=== PATIENT | female | born 1995 | race Caucasian/White ===

== ENCOUNTER → 2018-12-31 | Outpatient (REF) | payer OTHER | LOC: M LAB REF 16:26 | PROVIDERS: ATTEND Obstetrics & Gynecology | DX: Z36.85 Encounter for antenatal screening for Streptococcus B (principal) ==

== ENCOUNTER 2019-01-12 13:00 | Outpatient (CLI) | payer OTHER ==
[~2019-01-12] VITALS: Ht 157.5 cm; Wt 105.5 kg
[2019-01-12 13:30] VITALS: BP 130/77
[2019-01-12 14:07] VITALS: BP 125/63
[2019-01-12 14:56] VITALS: BP 114/66
[2019-01-12] MEDS ORDERED: LEVO175T2 PO (15:00)
[2019-01-12 15:26] VITALS: BP 123/66
== END 2019-01-12 15:53 | disposition home or self-care (01) ==
LOC: M LDO 13:00
PROVIDERS: ATTEND Obstetrics & Gynecology
DX: O36.8130 Decreased fetal movements, third trimester, not applicable or unspecified (principal); Z3A.38 38 weeks gestation of pregnancy

== ENCOUNTER 2019-01-29 07:22 | Inpatient (IN) | payer OTHER ==
[~2019-01-29] VITALS: Ht 157.5 cm; Wt 106.0 kg
[2019-01-29] VITALS (8 sets, daily range): BP systolic 116–138; BP diastolic 57–81
[~2019-01-29 07:22] MED LIST: LEVO175T2 PO
[2019-01-29] MEDS ORDERED: LACTATED RINGER'S 1000 ML IV STA (08:05)
[2019-01-29] MEDS ORDERED: LR 1,000 ML IV SCH ×2 (08:05→11:30)
[2019-01-29] MEDS ORDERED: BICITRA 30ML SOLN UDC PO ONE (08:30)
[2019-01-29] MEDS ORDERED: ceFAZolin SOD 2 GM in IV 1 EA IV ONE (08:30)
[2019-01-29 08:36] LABS: HEMATOCRIT 33.9 % (36.0-47.0); HEMOGLOBIN 11.5 g/dl (12.0-15.5); MEAN CORPUSCULAR HEMOGLOBIN 30.8 pg (27.0-33.0); MEAN CORPUSCULAR HGB CONC 33.9 g/dl (32.0-36.5); MEAN CORPUSCULAR VOLUME 90.9 fl (80.0-96.0); PLATELET COUNT, AUTOMATED 238 10^3/uL (150-450); RED BLOOD COUNT 3.73 10^6/uL (4.00-5.40); WHITE BLOOD COUNT 9.9 10^3/uL (4.0-10.0)
[2019-01-29] MEDS: PRENATAL VITAMINS CHEWABLE TABLET PO SCH (09:00)
[2019-01-29] MEDS: DOCUSATE SODIUM 100 MG CAP PO SCH ×2 (09:00→21:15)
[2019-01-29] MEDS ORDERED: MORPHINE PRES-FREE INJ 10 MG/10 ML VIAL (J2274) As Ordered ONE (09:33)
[2019-01-29] MEDS ORDERED: ONDANSETRON 4MG/2ML VIAL (J2405) As Ordered ONE ×2 (09:33→12:16)
[2019-01-29] MEDS ORDERED: ONDANSETRON 4MG/2ML VIAL (J2405) IV PRN ×3 (10:11→11:30)
[2019-01-29] MEDS ORDERED: NALOXONE INJ 0.4 MG/1 ML VIAL (J2310) IV PRN ×2 (10:11)
[2019-01-29] MEDS ORDERED: diphenhydrAMINE INJ 50MG/ML VIAL (J1200) IV PRN (10:11)
[2019-01-29] MEDS ORDERED: OXYTOCIN DRIP 30 UNITS in IV 1 EA IV SCH (10:11)
[2019-01-29] MEDS ORDERED: NALBUPHINE HCL 10 MG/ML AMP (J2300) IV PRN (10:11)
[2019-01-29] MEDS ORDERED: METOCLOPRAMIDE INJ 10MG/2ML VIAL (J2765) IV PRN ×2 (10:11→11:30)
[2019-01-29] MEDS ORDERED: MEASLES,MUMPS,RUBELLA VACCINE INJ (MMR-II) (90707) SC SCH (10:15)
[2019-01-29] MEDS ORDERED: MOM 30ML SUSPENSION UDC PO PRN (10:15)
[2019-01-29] MEDS ORDERED: ACETAMINOPHEN 500 MG TAB PO PRN (10:15)
[2019-01-29] MEDS ORDERED: RHOGAM 300 MCG (1500 IU) INJ (J2790) IM SCH (10:15)
[2019-01-29] MEDS ORDERED: KETOROLAC 60 MG/2 ML VIAL (J1885) As Ordered ONE (10:32)
[2019-01-29] MEDS ORDERED: OXYTOCIN INJ 10 UNITS/ML VIAL (J2590) As Ordered ONE (10:33)
[2019-01-29 10:50] LABS: CORD GAS HCO3 A 24.2 MEQ/L; CORD GAS O2 SAT A 22.7 %; CORD GAS PCO2 A 57.1 mmHg; CORD GAS PH A 7.245 UNITS; CORD GAS PO2 A 12.9 mmHg; CORD GAS SBC A 19.4 MEQ/L
[2019-01-29 10:52] LABS: CORD GAS ABE V -2.4; CORD GAS HCO3 V 23.7 MEQ/L; CORD GAS O2 SAT V 38.6 %; CORD GAS PCO2 V 45.2 mmHg; CORD GAS PH V 7.337 UNITS; CORD GAS PO2 V 17.6 mmHg; CORD GAS TCO2 V 25.1 MEQ/L
--- NOTE | 2019-01-29 11:22 | RO ---
DATE OF PROCEDURE: 01/29/2019 Keya is a 23-year-old female who had a history of prior section at approximately 40 plus weeks gestation. She wanted originally to go for trial of labor after (TOLAC), however changed her mind and decided to proceed with elective repeat section. PREOPERATIVE DIAGNOSIS: Term with a history of prior section for elective repeat section. POSTOPERATIVE DIAGNOSIS: Term with a history of prior section for elective repeat section. PROCEDURE: 1. Repeat section. 2. Revision of old scar. SURGEON: Jalen Beth DO PRINCIPAL SOFTWARE ENGINEER: ANESTHESIA: Spinal. COMPLICATIONS: None. ESTIMATED BLOOD LOSS: 500 mL. FINDINGS: Live female infant in occiput transverse position. scores nine and nine. weight 8 pounds 1 ounce. PROCEDURE After obtaining informed consent. Patient was taken to the operating room where she was draped and prepped in usual fashion. An elliptical incision was made. Old scar removed. Incision carried down to the fasia and spread laterally. Peritoneal cavity identified and entered. A mobios skin retractor was placed. delivered in a atraumatic fashion. Placenta delivered manually intact. Three-vessel cord. The uterus was then cleared of all clot and debris. Uterine incision repaired using #0 Vicryl sutures in two separate segments. All superficial bleeders coagulated. Pelvis copiously irrigated with normal saline and suctioned out. Attention turned to the peritoneum which was closed in a running fashion using #2-0 Vicryl. Fascia closed in two separate segments of #0 Vicryl sutures. All superficial bleeders coagulated and the skin was reapproximated in a subcuticular fashion using #3-0 Vicryl on a Dave. Steri-Strips placed. The patient tolerated procedure well. She was then transferred to recovery room in stable condition. MANUEL
[2019-01-29] MEDS ORDERED: PERCOCET 5MG/325MG TAB PO PRN (11:30)
[2019-01-29] MEDS ORDERED: KETOROLAC 30 MG/ML VIAL (J1885) IV PRN (11:30)
[2019-01-29] MEDS ORDERED: fentaNYL 100 MCG/2 ML INJECTION (J3010) IV PRN ×2 (11:30→12:45)
[2019-01-29] MEDS ORDERED: OXYTOCIN 30 UNITS IN 0.9% NaCl 500ML IV BAG (J2590) As Ordered ONE (11:38)
[2019-01-29] MEDS ORDERED: fentaNYL 100 MCG/2 ML INJECTION (J3010) As Ordered ONE (12:33)
[2019-01-29] MEDS: KETOROLAC 30 MG/ML VIAL (J1885) IV SCH ×2 (17:31→23:28)
[2019-01-30 02:20] VITALS: BP 116/73
[2019-01-30] MEDS: KETOROLAC 30 MG/ML VIAL (J1885) IV SCH (05:37)
[2019-01-30 06:00] VITALS: BP 113/55
[2019-01-30 08:08] LABS: HEMATOCRIT 28.7 % (36.0-47.0); MEAN CORPUSCULAR HEMOGLOBIN 29.9 pg (27.0-33.0); MEAN CORPUSCULAR HGB CONC 32.1 g/dl (32.0-36.5); MEAN CORPUSCULAR VOLUME 93.2 fl (80.0-96.0); PLATELET COUNT, AUTOMATED 215 10^3/uL (150-450); RED BLOOD COUNT 3.08 10^6/uL (4.00-5.40); WHITE BLOOD COUNT 9.9 10^3/uL (4.0-10.0)
[2019-01-30 08:24] LABS: HEMOGLOBIN 9.2 g/dl (12.0-15.5)
[2019-01-30] MEDS ORDERED: LEVOTHYROXINE 75MCG TABLET (0.075MG) PO SCH (09:00)
[2019-01-30] MEDS: PRENATAL VITAMINS CHEWABLE TABLET PO SCH (09:00)
[2019-01-30] MEDS ORDERED: LEVOTHYROXINE 100MCG TABLET (0.1MG) PO SCH (09:00)
[2019-01-30] MEDS: DOCUSATE SODIUM 100 MG CAP PO SCH ×2 (09:59→20:33)
[2019-01-30] MEDS: LEVOTHYROXINE 100MCG TABLET (0.1MG) PO SCH (09:59)
[2019-01-30] MEDS: LEVOTHYROXINE 75MCG TABLET (0.075MG) PO SCH (10:00)
[2019-01-30 10:30] VITALS: BP 122/64
[2019-01-30] MEDS: IBUPROFEN 800 MG TAB PO SCH ×2 (13:31→20:32)
[2019-01-30 14:00] VITALS: BP 126/74
[2019-01-30 18:00] VITALS: BP 128/58
[2019-01-30] MEDS: PERCOCET 5MG/325MG TAB PO PRN (18:01)
[2019-01-30 22:22] VITALS: BP 104/56
[2019-01-31 02:00] VITALS: BP 129/68
[2019-01-31] MEDS: LEVOTHYROXINE 100MCG TABLET (0.1MG) PO SCH (05:25)
[2019-01-31] MEDS: LEVOTHYROXINE 75MCG TABLET (0.075MG) PO SCH (05:25)
[2019-01-31] MEDS: IBUPROFEN 800 MG TAB PO SCH (05:26)
[2019-01-31 06:00] VITALS: BP 118/57
[2019-01-31] MEDS: PRENATAL VITAMINS CHEWABLE TABLET PO SCH (09:00)
[2019-01-31] MEDS: PERCOCET 5MG/325MG TAB PO PRN (09:01)
[2019-01-31] MEDS: DOCUSATE SODIUM 100 MG CAP PO SCH (09:01)
== END 2019-01-31 11:25 | disposition home or self-care (01) | DRG 540 ==
LOC: M LDI 07:22 → M OBS 13:10
PROVIDERS: ADMIT Obstetrics & Gynecology; ATTEND Obstetrics & Gynecology
PROC: 0HB7XZZ Excision of Abdomen Skin, External Approach (ICD-10-PCS; 2019-01-29)
PROC: 10D00Z1 Extraction of Products of Conception, Low, Open Approach (ICD-10-PCS; principal; 2019-01-29 10:00)
DX: O34.211 Maternal care for low transverse scar from previous cesarean delivery (principal); Z37.0 Single live birth; Z3A.40 40 weeks gestation of pregnancy

== ENCOUNTER 2019-03-11 15:36 | Emergency (ER) | payer OTHER ==
[~2019-03-11] VITALS: Ht 157.5 cm; Wt 92.7 kg
[2019-03-11] MEDS ORDERED: LEVO125T4 (15:43)
[2019-03-11 17:27] VITALS: BP 129/61
== END 2019-03-11 17:29 | disposition home or self-care (01) ==
LOC: M ED 15:36
DX: F43.20 Adjustment disorder, unspecified (principal); Z91.040 Latex allergy status

== ENCOUNTER → 2021-10-31 | Outpatient (REF) | payer OTHER ==
[~2021-10-31] MED LIST changes: +LEVO125T4
== END ==
LOC: M PLALAB 14:33
PROVIDERS: ATTEND Obstetrics & Gynecology
DX: Z53.9 Procedure and treatment not carried out, unspecified reason (principal)

== ENCOUNTER → 2021-12-06 | Outpatient (CLI) | payer OTHER ==
[~2021-12-06] MED LIST changes: +ACET-683 PO; +IBUP-1022 PO; +LEVO125T4 PO
== END ==
LOC: M WHC 13:53
PROVIDERS: ATTEND Obstetrics & Gynecology
DX: Z53.9 Procedure and treatment not carried out, unspecified reason (principal); O99.282 Endocrine, nutritional and metabolic diseases complicating pregnancy, second trimester

== ENCOUNTER → 2021-12-06 | Outpatient (CLI) | payer OTHER | LOC: M WHC 14:13 | PROVIDERS: ATTEND Obstetrics & Gynecology | DX: O99.282 Endocrine, nutritional and metabolic diseases complicating pregnancy, second trimester (principal); O02.1 Missed abortion; Z3A.14 14 weeks gestation of pregnancy ==

== ENCOUNTER 2021-12-07 15:36 | Inpatient (IN) | payer OTHER ==
[~2021-12-07] VITALS: Ht 157.5 cm; Wt 102.4 kg
[~2021-12-07 15:36] MED LIST changes: -ACET-683 PO; -IBUP-1022 PO; -LEVO125T4 PO
[2021-12-07 16:01] VITALS: BP 119/67
[2021-12-07] MEDS ORDERED: HOME MED LIST COMPLETE! XX SCH (16:05)
[2021-12-07] MEDS ORDERED: METHYLERGONOVINE MALEATE 0.2 MG/ML VIAL (J2210) IM PRN (16:45)
[2021-12-07] MEDS ORDERED: RHOGAM 300 MCG (1500 IU) INJ (J2790) IM SCH (16:45)
[2021-12-07] MEDS ORDERED: LIDOCAINE 1% MDV 20ML VIAL INFIL PRN (16:45)
[2021-12-07] MEDS ORDERED: TRANEXAMIC ACID INJection 1,000 MG in NS 100 ML IV PRN (16:45)
[2021-12-07] MEDS ORDERED: OXYTOCIN DRIP 30 UNITS in IV 1 EA IV PRN ×4 (16:45)
[2021-12-07] MEDS ORDERED: CARBOPROST TROMETHAMINE 250 MCG/ML AMP IM PRN (16:45)
[2021-12-07] MEDS ORDERED: OXYTOCIN INJ 10 UNITS/ML VIAL (J2590) IM PRN (16:45)
[2021-12-07] MEDS: miSOPROStol 50MCG 1/2 TABLET PO SCH ×2 (17:19→21:22)
[2021-12-07] MEDS: ACETAMINOPHEN 500 MG TAB PO PRN (17:19)
[2021-12-07 17:20] VITALS: BP 139/64
[2021-12-07 17:52] LABS: BASO % 0.3 % (0.0-1.0); EOS % 0.4 % (0.0-3.0); HEMOGLOBIN 11.8 g/dl (12.0-15.5); LYMPH # 2.2 10^3/uL (1.5-5.0); LYMPH % 22.7 % (24.0-44.0); MEAN CORPUSCULAR HEMOGLOBIN 28.7 pg (27.0-33.0); MEAN CORPUSCULAR HGB CONC 32.8 g/dl (32.0-36.5); MEAN CORPUSCULAR VOLUME 87.6 fl (80.0-96.0); MONO # 0.5 10^3/uL (0.0-0.8); MONO % 5.4 % (2.0-8.0); NEUTROPHILS # 6.9 10^3/uL (1.5-8.5); NEUTROPHILS % 70.9 % (36.0-66.0); PLATELET COUNT, AUTOMATED 295 10^3/uL (150-450); RED BLOOD COUNT 4.11 10^6/uL (4.00-5.40); WHITE BLOOD COUNT 9.7 10^3/uL (4.0-10.0)
[2021-12-07 18:28] VITALS: BP 135/72
[2021-12-07 19:33] VITALS: BP 133/58
[2021-12-07 21:24] VITALS: BP 113/69
[2021-12-08] VITALS (16 sets, daily range): BP systolic 77–143; BP diastolic 47–90
[2021-12-08] MEDS: miSOPROStol 50MCG 1/2 TABLET PO SCH ×3 (01:00→09:00)
[2021-12-08] MEDS ORDERED: miSOPROStol 100MCG TABLET PO ONE ×2 (02:00→05:45)
[2021-12-08] MEDS: LEVOTHYROXINE 150MCG TABLET (0.15MG) PO SCH (05:51)
[2021-12-08] MEDS ORDERED: ONDANSETRON 4MG ORAL DISINTEGRATING TAB PO ONE (06:45)
[2021-12-08] MEDS ORDERED: SLF 3 ML SYR IV PRN (08:25)
[2021-12-08] MEDS: SLF 3 ML SYR IV SCH ×2 (08:32→22:19)
[2021-12-08] MEDS ORDERED: LEVO125T4 PO (08:43)
[2021-12-08] MEDS ORDERED: miSOPROStol 50MCG 1/2 TABLET PV ONE ×2 (13:00→19:45)
[2021-12-08] MEDS: ACETAMINOPHEN 500 MG TAB PO PRN ×2 (13:29→22:17)
[2021-12-09 00:29] VITALS: BP 123/73
[2021-12-09] MEDS ORDERED: miSOPROStol 50MCG 1/2 TABLET PO ONE (01:45)
[2021-12-09] MEDS ORDERED: PROMETHAZINE 25MG/ML 1ML VIAL IV ONE (01:55)
[2021-12-09] MEDS ORDERED: BUTORPHANOL 2 MG/ML INJ (J0595) IV ONE (01:55)
[2021-12-09 02:08] VITALS: BP 142/66
[2021-12-09] MEDS ORDERED: MORPHINE 10 MG/ML 1ML VIAL SC ONE (04:00)
[2021-12-09 04:26] VITALS: BP 108/60
[2021-12-09 04:42] VITALS: BP 110/56
[2021-12-09] MEDS ORDERED: MORPHINE 10 MG/ML 1ML VIAL IV ONE (05:00)
[2021-12-09 05:13] VITALS: BP 117/73
[2021-12-09] MEDS: LEVOTHYROXINE 150MCG TABLET (0.15MG) PO SCH (05:30)
[2021-12-09] MEDS: SLF 3 ML SYR IV SCH (06:00)
[2021-12-09] MEDS ORDERED: KETOROLAC 30 MG/ML 1ML VIAL IV ONE (08:50)
[2021-12-09] MEDS ORDERED: IBUP-1022 PO (13:49)
[2021-12-09] MEDS ORDERED: ACET-683 PO (13:49)
[2021-12-12 07:32] LABS: DRVV SCREEN 39.4 SEC
[2021-12-12 07:43] LABS: PTT LUPUS TYPE ANTICOAG SCREEN 1.1 (0-1.2)
[2021-12-13 15:11] LABS: ANTI PARVO VIRUS LEVEL IGG 8.7 index (0.0-0.8); ANTI PARVO VIRUS LEVEL IgM 0.2 index (0.0-0.8); BETA-2 GLYCOPROTEIN I ABY IGA <9 (0-25); BETA-2 GLYCOPROTEIN I ABY IGG <9 (0-20); BETA-2 GLYCOPROTEIN I ABY IGM <9 (0-32); CARDIOLIPIN IGA ANTIBODY <9 APL U/mL (0-11); CARDIOLIPIN IGG ANTIBODY <9 GPL U/mL (0-14); CARDIOLIPIN IGM ANTIBODY <9 MPL U/mL (0-12)
== END 2021-12-09 14:20 | disposition home or self-care (01) | DRG 779 ==
LOC: M LDI 15:36
PROVIDERS: ADMIT Advanced Practice Midwife; ATTEND Obstetrics & Gynecology
PROC: 3E0P7GC Introduction of Other Therapeutic Substance into Female Reproductive, Via Natural or Artificial Opening (ICD-10-PCS; principal; 2021-12-07)
DX: O02.1 Missed abortion (principal); Z3A.16 16 weeks gestation of pregnancy

== ENCOUNTER → 2022-06-05 | Outpatient (CLI) | payer OTHER ==
[~2022-06-05] MED LIST changes: +ACET-683 PO; +IBUP-1022 PO; +LEVO125T4 PO
[2022-06-05 15:51] LABS: HEMATOCRIT 38.2 % (36.0-47.0); HEMOGLOBIN 12.4 g/dl (12.0-15.5); MEAN CORPUSCULAR HEMOGLOBIN 28.4 pg (27.0-33.0); MEAN CORPUSCULAR HGB CONC 32.5 g/dl (32.0-36.5); MEAN CORPUSCULAR VOLUME 87.4 fl (80.0-96.0); PLATELET COUNT, AUTOMATED 329 10^3/uL (150-450); RED BLOOD COUNT 4.37 10^6/uL (4.00-5.40); WHITE BLOOD COUNT 8.6 10^3/uL (4.0-10.0)
[2022-06-05 16:55] LABS: HIV 1&2 SCREEN CENTAUR NEGATIVE (NEGATIVE)
[2022-06-05 18:23] LABS: GC DNA AMPLIFICATION NEGATIVE (NEGATIVE)
== END ==
LOC: M PLALAB 13:39
PROVIDERS: ATTEND Obstetrics & Gynecology
DX: O34.219 Maternal care for unspecified type scar from previous cesarean delivery (principal); Z3A.00 Weeks of gestation of pregnancy not specified

== ENCOUNTER → 2022-08-14 | Outpatient (CLI) | payer OTHER | LOC: M WHC 14:28 | PROVIDERS: ATTEND Specialist | DX: Z34.82 Encounter for supervision of other normal pregnancy, second trimester (principal); Z3A.21 21 weeks gestation of pregnancy ==

== ENCOUNTER → 2022-11-20 | Outpatient (REF) | payer OTHER | LOC: M PLALAB 10:50 | PROVIDERS: ATTEND Obstetrics & Gynecology | DX: Z3A.36 36 weeks gestation of pregnancy (principal) ==

== ENCOUNTER 2022-12-02 22:48 | Outpatient (CLI) | payer OTHER ==
[~2022-12-02] VITALS: Ht 157.5 cm; Wt 107.8 kg
[~2022-12-02 22:48] MED LIST changes: +SYNT175T2 PO
[2022-12-02 23:06] VITALS: BP 124/74
[2022-12-02] MEDS ORDERED: HOME MED LIST COMPLETE! XX SCH (23:15)
[2022-12-02] MEDS ORDERED: ACETAMINOPHEN 500 MG TAB PO ONE (23:55)
[2022-12-03 01:02] LABS: APPEARANCE, URINE CLEAR (CLEAR); BACTERIA, URINE AUTO NEGATIVE (NEGATIVE); BILIRUBIN, URINE AUTO NEGATIVE (NEGATIVE); BLOOD, URINE BLOOD NEGATIVE (NEGATIVE); COLOR, URINE STRAW (YELLOW); GLUCOSE, URINE (UA) AUTO NEGATIVE (NEGATIVE); KETONE, URINE AUTO TRACE mg/dL (NEGATIVE); LEUKOCYTE ESTERASE, URINE AUTO NEGATIVE (NEGATIVE); MUCUS, URINE SMALL (NEGATIVE); NITRITE, URINE AUTO NEGATIVE (NEGATIVE); PROTEIN, URINE AUTO NEGATIVE (NEGATIVE); RBC, URINE AUTO 0 /HPF (0-3); SPECIFIC GRAVITY URINE AUTO 1.006 (1.002-1.035); SQUAMOUS EPITHELIAL CELL UR AU 0 /HPF (0-6); UROBILINOGEN, URINE AUTO 0.2 mg/dL (0.0-2.0); WBC, URINE AUTO 0 /HPF (0-3)
== END 2022-12-03 01:26 | disposition home or self-care (01) ==
LOC: M LDO 22:48
PROVIDERS: ATTEND Obstetrics & Gynecology
DX: O47.1 False labor at or after 37 completed weeks of gestation (principal); O34.219 Maternal care for unspecified type scar from previous cesarean delivery; O99.283 Endocrine, nutritional and metabolic diseases complicating pregnancy, third trimester; E03.9 Hypothyroidism, unspecified; Z91.018 Allergy to other foods; Z91.040 Latex allergy status; Z91.048 Other nonmedicinal substance allergy status; Z3A.37 37 weeks gestation of pregnancy
CPT/HCPCS: 59025; 81001; G0463

== ENCOUNTER 2022-12-13 05:08 | Inpatient (IN) | payer OTHER ==
[2022-12-13] VITALS (8 sets, daily range): BP systolic 111–127; BP diastolic 54–72; TEMP 97.8; O2SAT 95–99
[~2022-12-13] VITALS: Ht 157.5 cm; Wt 108.2 kg
[2022-12-13] MEDS ORDERED: LACTATED RINGER'S 1000 ML IV STA (05:21)
[2022-12-13] MEDS ORDERED: LR 1,000 ML IV SCH (05:25)
[2022-12-13] MEDS ORDERED: ceFAZolin SOD 2 GM in IV 1 EA IV ONE (05:25)
[2022-12-13] MEDS ORDERED: LIDOCAINE 1% SDV 5ML VIAL SC PRN (05:25)
[2022-12-13] MEDS ORDERED: BICITRA 30ML SOLN UDC PO ONE (05:25)
[2022-12-13] MEDS ORDERED: HOME MED LIST COMPLETE! XX SCH (05:30)
[2022-12-13 06:15] LABS: HEMATOCRIT 30.9 % (36.0-47.0); HEMOGLOBIN 9.6 g/dl (12.0-15.5); MEAN CORPUSCULAR HEMOGLOBIN 26.2 pg (27.0-33.0); MEAN CORPUSCULAR HGB CONC 31.1 g/dl (32.0-36.5); MEAN CORPUSCULAR VOLUME 84.2 fl (80.0-96.0); PLATELET COUNT, AUTOMATED 274 10^3/uL (150-450); RED BLOOD COUNT 3.67 10^6/uL (4.00-5.40); WHITE BLOOD COUNT 9.7 10^3/uL (4.0-10.0)
[2022-12-13] MEDS ORDERED: ACETAMINOPHEN 1000MG 100ML IV BAG As Ordered ONE (08:02)
[2022-12-13] MEDS ORDERED: ePHEDrine SULFATE 25 MG/5 ML(5MG/ML) SYRINGE As Ordered ONE ×2 (08:02→08:19)
[2022-12-13] MEDS ORDERED: PHENYLephrine 500MCG 5ML (100MCG/ML) SYRINGE As Ordered ONE (08:02)
[2022-12-13] MEDS ORDERED: GLYCOPYRROLATE INJ 0.2 MG/ML 2 ML VIAL As Ordered ONE (08:02)
[2022-12-13] MEDS ORDERED: ONDANSETRON 4MG 2ML VIAL As Ordered ONE (08:02)
[2022-12-13] MEDS ORDERED: KETOROLAC 60MG 2ML VIAL As Ordered ONE (08:02)
[2022-12-13] MEDS ORDERED: MORPHINE PRES-FREE INJ 10 MG/10 ML VIAL As Ordered ONE (08:02)
[2022-12-13] MEDS ORDERED: ceFAZolin 1GM VIAL As Ordered ONE (08:07)
[2022-12-13] MEDS ORDERED: ceFAZolin SOD 1 GM in D5W MINI-BAG PLUS 50 ML IV ONE (09:00)
[2022-12-13] MEDS ORDERED: SIMETHICONE 80MG CHEW TAB PO PRN (09:35)
[2022-12-13] MEDS ORDERED: RHOGAM 300MCG (1500IU) INJ IM SCH (09:35)
[2022-12-13] MEDS ORDERED: OXYTOCIN DRIP 30 UNITS in IV 1 EA IV SCH (09:35)
[2022-12-13] MEDS ORDERED: MOM 30ML SUSPENSION UDC PO PRN (09:35)
[2022-12-13] MEDS ORDERED: PERCOCET 5MG/325MG TAB PO PRN (09:35)
[2022-12-13] MEDS ORDERED: OXYTOCIN 30UNITS IN 0.9% NaCl 500ML IV BAG As Ordered ONE (09:40)
[2022-12-13] MEDS ORDERED: oxyCODONE 5MG TAB PO PRN (09:45)
[2022-12-13] MEDS ORDERED: diphenhydrAMINE 50MG/ML VIAL IV PRN (09:45)
[2022-12-13] MEDS ORDERED: **NOTE PATIENT COMMENT** MISC XX SCH (09:45)
[2022-12-13] MEDS ORDERED: METOCLOPRAMIDE INJ 10MG/2ML VIAL IV PRN (09:45)
[2022-12-13] MEDS ORDERED: NALOXONE INJ 0.4MG/1ML VIAL IV PRN ×2 (09:45)
[2022-12-13] MEDS ORDERED: ONDANSETRON 4MG 2ML VIAL IV PRN ×2 (09:45)
[2022-12-13] MEDS ORDERED: fentaNYL 100 MCG/2 ML INJECTION IV PRN (09:45)
[2022-12-13] MEDS: LR 1,000 ML IV SCH ×3 (09:47→22:44)
[2022-12-13] MEDS ORDERED: LR 1,000 ML IV ONE ×2 (11:55→18:05)
[2022-12-13] MEDS: SLF 3 ML SYR IV SCH ×2 (12:02→17:52)
[2022-12-13] MEDS: KETOROLAC 30 MG/ML 1ML VIAL IV SCH ×2 (16:02→21:11)
[2022-12-13] MEDS: DOCUSATE SODIUM 100MG CAPSULE PO SCH (21:11)
[2022-12-14] MEDS: SLF 3 ML SYR IV SCH (01:45)
[2022-12-14 02:00] VITALS: BP 102/53; O2SAT 99
[2022-12-14] MEDS: KETOROLAC 30 MG/ML 1ML VIAL IV SCH (03:10)
[2022-12-14] MEDS: LEVOTHYROXINE 150MCG TABLET (0.15MG) PO SCH (05:43)
[2022-12-14] MEDS: LEVOTHYROXINE 25MCG TABLET (0.025MG) PO SCH (05:43)
[2022-12-14 06:00] VITALS: BP 106/62; O2SAT 98
[2022-12-14 06:51] LABS: HEMATOCRIT 24.3 % (36.0-47.0); MEAN CORPUSCULAR HEMOGLOBIN 26.6 pg (27.0-33.0); MEAN CORPUSCULAR HGB CONC 30.9 g/dl (32.0-36.5); MEAN CORPUSCULAR VOLUME 86.2 fl (80.0-96.0); PLATELET COUNT, AUTOMATED 211 10^3/uL (150-450); RED BLOOD COUNT 2.82 10^6/uL (4.00-5.40); WHITE BLOOD COUNT 8.7 10^3/uL (4.0-10.0)
[2022-12-14 06:55] LABS: HEMOGLOBIN 7.5 g/dl (12.0-15.5)
[2022-12-14] MEDS: PRENATAL VITAMINS CHEWABLE TABLET PO SCH (09:00)
[2022-12-14] MEDS: DOCUSATE SODIUM 100MG CAPSULE PO SCH ×2 (09:01→20:08)
[2022-12-14] MEDS: LR 1,000 ML IV SCH ×3 (09:35→20:03)
[2022-12-14 10:00] VITALS: BP 121/72; O2SAT 98
[2022-12-14] MEDS: IBUPROFEN 800 MG TAB PO SCH ×2 (12:58→19:00)
[2022-12-14 14:00] VITALS: BP 106/57; O2SAT 98
[2022-12-14] MEDS: PERCOCET 5MG/325MG TAB PO PRN (17:48)
[2022-12-14 18:00] VITALS: BP 127/74; O2SAT 98
[2022-12-14 21:57] VITALS: BP 128/62; O2SAT 98
[2022-12-15 02:00] VITALS: BP 116/59; O2SAT 99
[2022-12-15] MEDS: LEVOTHYROXINE 25MCG TABLET (0.025MG) PO SCH (05:17)
[2022-12-15] MEDS: IBUPROFEN 800 MG TAB PO SCH ×2 (05:17→12:14)
[2022-12-15] MEDS: LEVOTHYROXINE 150MCG TABLET (0.15MG) PO SCH (05:17)
[2022-12-15 06:00] VITALS: BP 112/63; O2SAT 100
[2022-12-15] MEDS ORDERED: MEASLES,MUMPS,RUBELLA VACCINE INJ (MMR-II) SC.IMMUN ONE (09:00)
[2022-12-15] MEDS: PRENATAL VITAMINS CHEWABLE TABLET PO SCH (09:00)
[2022-12-15] MEDS: DOCUSATE SODIUM 100MG CAPSULE PO SCH (09:21)
[2022-12-15] MEDS: LR 1,000 ML IV SCH (09:35)
[2022-12-15] MEDS: PERCOCET 5MG/325MG TAB PO PRN (09:36)
[2022-12-15] MEDS ORDERED: PERCOCET PO (10:06)
[2022-12-15] MEDS ORDERED: IBUP80TA PO (10:06)
== END 2022-12-15 19:50 | disposition home or self-care (01) | DRG 540 ==
LOC: M LDI 05:08 → M OBS 10:18
PROVIDERS: ADMIT Obstetrics & Gynecology; ATTEND Obstetrics & Gynecology
PROC: 0UB70ZZ Excision of Bilateral Fallopian Tubes, Open Approach (ICD-10-PCS; 2022-12-13)
PROC: 10D00Z1 Extraction of Products of Conception, Low, Open Approach (ICD-10-PCS; principal; 2022-12-13 07:30)
DX: O34.211 Maternal care for low transverse scar from previous cesarean delivery (principal); Z37.0 Single live birth; Z3A.39 39 weeks gestation of pregnancy; Z30.2 Encounter for sterilization

== ENCOUNTER → 2023-11-30 | Outpatient (CLI) | payer OTHER ==
[~2023-11-30] MED LIST changes: +IBUP80TA PO; +PERCOCET PO
== END ==
LOC: M WHC 13:39
PROVIDERS: ATTEND Obstetrics & Gynecology
DX: N93.9 Abnormal uterine and vaginal bleeding, unspecified (principal); N85.2 Hypertrophy of uterus

== ENCOUNTER → 2024-03-10 | Outpatient (CLI) | payer OTHER ==
[~2024-03-10] MED LIST changes: +ISOVUE-370 76% 100ML VIAL ONE
== END ==
LOC: M PLAIMG 09:22
PROVIDERS: ATTEND Surgery
DX: K43.2 Incisional hernia without obstruction or gangrene (principal); R91.1 Solitary pulmonary nodule; K76.0 Fatty (change of) liver, not elsewhere classified; N28.1 Cyst of kidney, acquired; K43.9 Ventral hernia without obstruction or gangrene; N83.292 Other ovarian cyst, left side
CPT/HCPCS: 74177; Q9967

== ENCOUNTER 2024-06-04 11:12 | Day surgery (SDC) | payer OTHER ==
[~2024-06-04] VITALS: Ht 154.9 cm; Wt 107.0 kg
[~2024-06-04 11:12] MED LIST changes: +CELE0.09 PO; +GLYCOPYRROLATE INJ 0.2 MG/ML 2 ML VIAL As Ordered ONE; +HAIR1CHW PO; -ISOVUE-370 76% 100ML VIAL ONE; +KETOROLAC 60MG 2ML VIAL As Ordered ONE; +LEVO137T2 PO; +LEXA1TAB2 PO; +LIDOCAINE 2% 100MG/5ML SDV (FOR ANES.) As Ordered ONE; +METOCLOPRAMIDE INJ 10MG/2ML VIAL As Ordered ONE; +MIDAZOLAM INJ 2MG/2ML VIAL As Ordered ONE; +ONDANSETRON 4MG 2ML VIAL As Ordered ONE; +ROCURONIUM BROMIDE 50MG/5ML VIAL As Ordered ONE; +SERT50TA29 PO; +SUGAMMADEX SODIUM 500 MG/5 ML VIAL (BRIDION) As Ordered ONE; +VENL75CA47 PO; +fentaNYL 100 MCG/2 ML INJECTION As Ordered ONE; +propofoL 200 MG/20 ML VIAL As Ordered ONE
[2024-06-04 11:52] LABS: HEMATOCRIT 34.5 % (36.0-47.0); HEMOGLOBIN 10.9 g/dl (12.0-15.5); MEAN CORPUSCULAR HEMOGLOBIN 24.9 pg (27.0-33.0); MEAN CORPUSCULAR HGB CONC 31.6 g/dl (32.0-36.5); MEAN CORPUSCULAR VOLUME 78.9 fl (80.0-96.0); PLATELET COUNT, AUTOMATED 380 10^3/uL (150-450); RED BLOOD COUNT 4.37 10^6/uL (4.00-5.40); WHITE BLOOD COUNT 5.9 10^3/uL (4.0-10.0)
[2024-06-04 12:20] LABS: HCG, SERUM QUALITATIVE NEGATIVE (NEGATIVE)
[2024-06-04] MEDS: ceFAZolin SOD 3 GM in DEXTROSE 5% (D5W) MINI-BAG PLU 1... IV ONE (12:23)
[2024-06-04] MEDS: METHYLENE BLUE 0.5% (5MG/ML) 10 ML AMP (PROVAYBLUE) As Ordered ONE (14:00)
[2024-06-04] MEDS: SCOPOLAMINE 1MG TRANSDERMAL PATCH As Ordered ONE (14:08)
[2024-06-04] MEDS: LR 1,000 ML IV SCH ×2 (15:00→15:15)
[2024-06-04] MEDS ORDERED: PERCOCET 5MG/325MG TAB PO PRN ×2 (15:15)
[2024-06-04] MEDS ORDERED: ONDANSETRON 4MG TAB PO PRN (15:15)
[2024-06-04] MEDS ORDERED: MORPHINE 4 MG/ML 1ML VIAL IV PRN (15:15)
[2024-06-04] MEDS ORDERED: ONDANSETRON 4MG 2ML VIAL IV PRN (15:15)
[2024-06-04] MEDS ORDERED: PERCOCET PO (15:24)
[2024-06-04] MEDS ORDERED: COLA100C5 PO (15:24)
[2024-06-04] MEDS ORDERED: IBUP80TA PO (15:24)
[2024-06-04] MEDS: fentaNYL 100 MCG/2 ML INJECTION IV PRN (15:29)
[2024-06-04] MEDS: ONDANSETRON 4MG 2ML VIAL IV PRN (15:29)
[2024-06-04] MEDS ORDERED: METOCLOPRAMIDE INJ 10MG/2ML VIAL IV PRN (15:40)
[2024-06-04] MEDS: oxyCODONE 5MG TAB PO PRN (15:54)
[2024-06-04] MEDS: HYDROMORPHONE HCL 0.5 MG/ 0.5 ML SYRINGE IV PRN (15:55)
[2024-06-04 17:15] VITALS: BP 121/70; TEMP 97.8; O2SAT 96
[2024-06-04 17:45] VITALS: BP 109/53; TEMP 98; O2SAT 96
[2024-06-04 18:15] VITALS: BP 112/60; TEMP 98.5; O2SAT 96
[2024-06-04] MEDS: KETOROLAC 30 MG/ML 1ML VIAL IV SCH (19:00)
[2024-06-04 19:15] VITALS: BP 106/53; TEMP 97.7; O2SAT 98
[2024-06-04] MEDS ORDERED: DOCUSATE SODIUM 100MG CAPSULE PO SCH (21:00)
[2024-06-05] MEDS ORDERED: IBUPROFEN 800 MG TAB PO SCH (15:00)
== END 2024-06-04 20:56 | disposition home or self-care (01) ==
LOC: M SDC 11:12 → UNDOADMOB 11:13 → M OBS 11:13 → M SDC 20:56 → UNDODISOB 20:56
PROVIDERS: ATTEND Obstetrics & Gynecology
DX: N93.9 Abnormal uterine and vaginal bleeding, unspecified (principal); N73.6 Female pelvic peritoneal adhesions (postinfective); R10.2 Pelvic and perineal pain; E03.9 Hypothyroidism, unspecified; F41.9 Anxiety disorder, unspecified; F32.A Depression, unspecified; F90.9 Attention-deficit hyperactivity disorder, unspecified type; G43.909 Migraine, unspecified, not intractable, without status migrainosus; Z79.899 Other long term (current) drug therapy; Z91.018 Allergy to other foods; Z91.040 Latex allergy status
CPT/HCPCS: 36415; 58571; 84703; 85027; 86850; 86900; 86901; 88307; J0665; J0690; J1100; J1171; J1596; J1885; J2250; J2405; J2765; J3010; Q9968; S2900

== ENCOUNTER → 2025-01-20 | Outpatient (REF) | payer OTHER ==
[~2025-01-20] MED LIST changes: +COLA100C5 PO; -GLYCOPYRROLATE INJ 0.2 MG/ML 2 ML VIAL As Ordered ONE; -IBUP-1022 PO; +IBUP600T42 PO; -KETOROLAC 60MG 2ML VIAL As Ordered ONE; -LIDOCAINE 2% 100MG/5ML SDV (FOR ANES.) As Ordered ONE; -METOCLOPRAMIDE INJ 10MG/2ML VIAL As Ordered ONE; -MIDAZOLAM INJ 2MG/2ML VIAL As Ordered ONE; -ONDANSETRON 4MG 2ML VIAL As Ordered ONE; -ROCURONIUM BROMIDE 50MG/5ML VIAL As Ordered ONE; -SUGAMMADEX SODIUM 500 MG/5 ML VIAL (BRIDION) As Ordered ONE; -fentaNYL 100 MCG/2 ML INJECTION As Ordered ONE; -propofoL 200 MG/20 ML VIAL As Ordered ONE
== END ==
LOC: M SFHCRHEU 10:59
PROVIDERS: ATTEND Internal Medicine
DX: E55.9 Vitamin D deficiency, unspecified (principal)